=== PATIENT | female | born 1955 | race Caucasian/White ===

== ENCOUNTER 2019-05-21 20:38 | Emergency (ER) | payer OTHER ==
[~2019-05-21 20:38] MED LIST: BACDS PO; CEP500 PO
[2019-05-21] MEDS ORDERED: AMLO-125 PO (20:47)
[2019-05-21] MEDS ORDERED: FURO-47 PO (20:47)
[2019-05-21] MEDS ORDERED: TELM40TA PO (20:47)
[2019-05-21] MEDS ORDERED: DIPHTH/TETANUS/ACEL. PERTUSSIS IM ONLY ONE (21:05)
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
--- NOTE | 2019-05-21 21:35 | RADIOLOGY IMAGING REPORT ---
FACILITY: [facility] PATIENT NAME: Mariajose Green : 1955 MR: [id number] V: [id number] EXAM DATE: ORDERING PHYSICIAN: ZORAN WITT TECHNOLOGIST: Location: [facility] Patient: Mariajsoe Green : 1955 Visit/Account:[id number] Date of Sevice: 05/21/2019 Study: CT scan of the brain without intravenous contrast. Indication: Trauma, head laceration Comparison study:None Technique: Multiple axial images were obtained through the brain without the use of intravenous contr ast. One of the following dose optimization techniques was utilized in the performance of this exam: Autom ated exposure control; adjustment of the mA and/or kV according to the patient's size; or use of an i terative reconstruction technique. Specific details can be referenced in the facility's radiology C T exam operational policy. The examination demonstrates no evidence of acute intracranial hemorrhage. There is no evidence of ex tra-axial collection or hydrocephalus. There is no abnormal density identified within the brain parenchyma. There is no evidence of disruption of the peripheral oropeza-white junction. The bony structures are unremarkable. There is a laceration and a scalp hematoma at the right vertex . IMPRESSION: No acute intracranial abnormality identified. Report Dictated By: Harinder Bowen at 05/21/2019 9:23 PM Report E-Signed By: Harinder Bowen at 05/21/2019 9:29 PM WSN:[id number]
[2019-05-21 22:00] VITALS: BP 132/88
== END 2019-05-21 22:31 | disposition home or self-care (01) ==
LOC: ER 20:53
DX: S09.8XXA Other specified injuries of head, initial encounter (principal); S16.1XXA Strain of muscle, fascia and tendon at neck level, initial encounter; S01.01XA Laceration without foreign body of scalp, initial encounter
CPT/HCPCS: 70450; 90471; 90715; 99284

== ENCOUNTER 2019-05-31 17:12 | Emergency (ER) | payer OTHER ==
[~2019-05-31 17:12] MED LIST changes: +AMLO-125 PO; +FURO-47 PO; +TELM40TA PO
[2019-05-31 17:18] VITALS: BP 128/81
--- NOTE | 2019-05-31 17:31 | ER Report ---
History and Physical Time Seen By MD: 17:27 Hx. of Stated Complaint: PATIENT HERE FOR STAPLE REMOVAL HPI/ROS CHIEF COMPLAINT: Laceration, stable removal. HISTORY OF PRESENT ILLNESS: The patient returns to the ED for suture removal. There have been no problems and no symptoms of infection. The laceration was on the head. Sutures have been in place for 10 days. Allergies: Coded Allergies: Iodinated Contrast- Oral and IV Dye (Verified Allergy, Mild, 05/21/19) Home Meds Reported Medications Telmisartan (Telmisartan) 40 Mg Tablet, 1 TAB PO QDAY 05/21/19 Amlodipine Besylate (AMLODIPINE BESYLATE) 5 Mg Tablet, 1 TAB PO QDAY, TAB 05/21/19 Furosemide (FUROSEMIDE) 40 Mg Tablet, 1 TAB PO QDAY, TAB 05/21/19 Past Medical/Surgical History Patient has past medical history of hypertension, hyperlipidemia. Patient denies any surgical history. Reviewed Nurses Notes: Yes Hx Smoking: No Hx Substance Use Disorder: No Hx Alcohol Use: No Constitutional Vital Sign - Last 24 Hours 05/31/19 17:18 Temp 98.7 Pulse 57 Resp 20 B/P (MAP) 128/81 Pulse Ox 95 O2 Delivery Room Air Physical Exam General appearance: alert no distress Skin: The laceration of the head is well healing and appears to have no evidence of infection. MEDICAL DECISION MAKING: I requested that the nurse remove the gagandeep. Following removal there was no reported dehiscence of the wound. Medical Decision Making ED Course/Re-evaluation ED Course Patient is admitted and examined, history and physical were obtained. Differential diagnoses were considered. On examination lungs are clear, heart is regular, wound appears to be well approximated. There does not appear to be any scabbing. Gagandeep removed without difficulty. There is no dehiscence. Discharge patient home at this time. Patient verbalized understanding of plan. Decision to Disposition Date: May 31, 2019 Decision to Disposition Time: 17:33 Depart Departure Latest Vital Signs Vital Signs Date Time Temp Pulse Resp B/P (MAP) Pulse Ox O2 Delivery O2 Flow Rate FiO2 05/31/19 17:18 98.7 57 20 128/81 95 Room Air Impression: Primary Impression: Encounter for staple removal Condition: Improved Disposition: HOME OR SELF-CARE Referrals: WANG ECHEVERRIA DO (PCP) Patient Instructions: GENERAL ER DISCHARGE INSTRUCTIONS Additional Instructions: Monitor for signs of infection; redness, swelling, heat, discharge, increasing pain or red streaking. Take Tylenol or Ibuprofen as needed for pain. Return to the ER with any concerns. LEANDRA BARROSO May 31, 2019 17:31
== END 2019-05-31 17:46 | disposition home or self-care (01) ==
LOC: ER 17:29
DX: S01.01XD Laceration without foreign body of scalp, subsequent encounter (principal)
CPT/HCPCS: 99281